=== PATIENT | male | born 1955 | race Caucasian/White ===

== ENCOUNTER 2016-07-07 16:49 | Emergency (ER) | payer BC ==
[~2016-07-07] VITALS: Ht 165.1 cm; Wt 83.9 kg
[2016-07-07 16:58] VITALS: BP 156/104; PULSE 106; RESP 20; TEMP 98.2; O2SAT 97
--- NOTE | 2016-07-07 17:02 | NUR ---
Neel cedillo in EDM - 07/07/16 at 1704 by PITO Pt placed to ER jacky 8 and to jillian. Pt report given to RUI Vilchis.
--- NOTE | 2016-07-07 17:04 | NUR ---
Pt placed to ER bed 05 and to gown. Pt report given to RUI Fuentes.
--- NOTE | 2016-07-07 17:15 | NUR ---
CASSI Watkins at bedside examining patient.
[2016-07-07] MEDS ORDERED: NACL 0.9% 1,000 ML IV SCH (17:16)
--- NOTE | 2016-07-07 17:18 | NUR ---
# 20 gauge angiocath placed to right hand . Use of asceptic technique. Opsite placed over site. Blood return noted. Blood for lab drawn from site. Flushed with 10 cc of normal saline. No evidence of infiltration noted. Patient tolerated well.
--- NOTE | 2016-07-07 17:19 | NUR ---
pt c/o LLQ pain with nausea,vomiting. had pain yesterday,went away,came back after the lunch.denies diarrhea,constipation,no blood in stool and urine.
[2016-07-07] MEDS ORDERED: MAG HYDROX/AL HYDROX/SIMETH 30 ML, BELLADONNA ALKALOIDS/PHENOBARB 10 ML, LIDOCAINE VISC... PO ONE ×3 (17:30)
[2016-07-07] MEDS ORDERED: KETOROLAC TROMETHAMINE 30 MG VIAL IVP ONE (17:30)
[2016-07-07] MEDS ORDERED: PROCHLORPERAZINE EDISYLATE 10 MG/2 ML VIAL IVP ONE (17:30)
[2016-07-07] MEDS ORDERED: PANTOPRAZOLE SODIUM 40 MG/VIAL (PROTONIX) IVP ONE (17:30)
[2016-07-07 17:31] LABS: BASOPHILS # (AUTO) 0.1 K/uL (0.0-0.2); BASOPHILS % (AUTO) 1.3 % (0.0-2.0); EOSINOPHILS # (AUTO) 0.3 K/uL (0.0-0.4); EOSINOPHILS % (AUTO) 3.5 % (0.0-4.0); HEMATOCRIT 43.8 % (36-54); HEMOGLOBIN 15.1 g/dL (14.0-18.0); LYMPHOCYTES # (AUTO) 1.3 K/uL (1.0-5.5); LYMPHOCYTES % (AUTO) 15.9 % (20.5-51.5); MEAN CORPUSCULAR HEMOGLOBIN 26 pg (27-31); MEAN CORPUSCULAR HGB CONC 35 % (32-36); MEAN CORPUSCULAR VOLUME 76 fL (79.0-98.0); MONOCYTES # (AUTO) 0.6 K/uL (0.0-1.0); MONOCYTES % (AUTO) 7.5 % (1.7-9.3); NEUTROPHILS # (AUTO) 6.1 K/uL (1.8-7.7); NEUTROPHILS % (AUTO) 71.8 % (40.0-70.0); PLATELET COUNT (AUTO) 206 K/uL (130-430); RED BLOOD CELL COUNT(AUTO) 5.75 MIL/uL (4.2-6.2); RED CELL DISTRIBUTION WIDTH 13.7 % (9.0-15.0); WHITE BLOOD COUNT (AUTO) 8.4 K/uL (4.8-10.8)
[2016-07-07 17:41] LABS: CREATININE 1.68 mg/dL (0.55-1.30); POTASSIUM 3.7 mmol/L (3.5-5.1)
[2016-07-07 17:46] LABS: ALBUMIN 4.2 g/dL (3.4-4.8); TOTAL BILIRUBIN 0.6 mg/dL (0.0-1.0); TOTAL PROTEIN, SERUM 7.6 g/dL (6.4-8.3)
[2016-07-07] MEDS ORDERED: KETOROLAC TROMETHAMINE 30 MG VIAL ONE (17:46)
--- NOTE | 2016-07-07 17:53 | NUR ---
medicated per MD's order.continue monitor.
[2016-07-07] MEDS ORDERED: DIPHENHYDRAMINE INJ 50 MG/ML VIAL ONE (17:54)
--- NOTE | 2016-07-07 17:55 | NUR ---
transported to ct scan via [facility]
[2016-07-07] MEDS ORDERED: DIPHENHYDRAMINE INJ 50 MG/ML VIAL IVP ONE (18:00)
[2016-07-07] MEDS ORDERED: MORPHINE 2 MG/ML INJ. SYRINGE IVP ONE (18:00)
--- NOTE | 2016-07-07 18:09 | NUR ---
returned back from ct scan. snoring after receiving the benadryl.no resp distress noted.
--- NOTE | 2016-07-07 19:00 | NUR ---
PT is resting in bed.awake,alert,no distress noted.
--- NOTE | 2016-07-07 19:13 | NUR ---
report given to welder 2nd shift Anatoly FABIAN
--- NOTE | 2016-07-07 19:15 | NUR ---
Pt is resting comfortably. VSS. Will continue to monitor. No other injuries or complaints mentioned/noted. No distress noted.
[2016-07-07 20:20] LABS: BILIRUBIN,URINE NEGATIVE (NEGATIVE); BLOOD, URINE 2+ (NEGATIVE); CLARITY/URINE CLEAR (CLEAR); COLOR,URINE YELLOW (YELLOW); GLUCOSE,URINE 1+ (NEGATIVE); KETONES,URINE NEGATIVE (NEGATIVE); LEUKOCYTE ESTERASE ,URINE NEGATIVE (NEGATIVE); NITRITE, URINE NEGATIVE (NEGATIVE); PH,URINE 6.5 (5.0-8.0); PROTEIN URINE NEGATIVE (NEGATIVE); UROBILINOGEN,URINE 0.2 (0.2-1.0)
[2016-07-07 20:34] LABS: BACTERIA,URINE None Seen /HPF (None Seen); MUCUS,URINE None Seen /LPF (None Seen); WBC,URINE 0-3 /HPF (0-3)
[2016-07-07 21:12] VITALS: BP 144/95; PULSE 90; RESP 16; TEMP 98.2; O2SAT 95
--- NOTE | 2016-07-07 21:12 | NUR ---
Patient given written and verbal discharge instructions and verbalizes understanding. ER MD discussed with patient the results and treatment provided. Patient in stable condition. ID arm band removed. IV catheter removed intact and dressing applied, no active bleeding. Rx of Zofran, Motrin, and [place] given. Patient educated on pain management and to follow up with PMD. Pain Scale 0/10. Opportunity for questions provided and answered.
== END 2016-07-07 21:12 | disposition home or self-care (01) ==
LOC: SED 16:49
DX: N20.0 Calculus of kidney (principal)
CPT/HCPCS: 36415; 74176; 80053; 81000; 85025; 96361; 96374; 96375; 99285; C9113; J0780; J1200; J1885; J2001; J7030

== ENCOUNTER 2017-12-15 23:23 | Emergency (ER) | payer BC ==
[~2017-12-15] VITALS: Ht 165.1 cm; Wt 78.5 kg
--- NOTE | 2017-12-15 23:30 | NUR ---
Patient to ER bed 6 to gown for evaluation. Side rails up.
[2017-12-15 23:32] VITALS: BP_SYST 133
--- NOTE | 2017-12-15 23:35 | NUR ---
Patient ambulatory to ED a/o x 4 with c/o left ankle pain since tuesday. Reports Hx of gout. Patient denies recent trauma or injury to site. Taking aspirin and advil with minimal relief. No obvious deformities noted. CMS intact. Patient able to bear partial weight.
--- NOTE | 2017-12-15 23:42 | NUR ---
CASSI Witt at bedside examining patient.
[2017-12-15] MEDS ORDERED: KETOROLAC TROMETHAMINE 30 MG VIAL IM ONE (23:45)
[2017-12-16 00:28] VITALS: BP_SYST 133
--- NOTE | 2017-12-16 00:28 | NUR ---
Patient given written and verbal discharge instructions and verbalizes understanding. ER MD discussed with patient the results and treatment provided. Patient in stable condition. ID arm band removed. Rx of Ibuprofen given. Patient educated on pain management and to follow up with PMD in 2-3 days. Pain Scale 0/10 Opportunity for questions provided and answered. Medication side effect fact sheet provided.
== END 2017-12-16 00:28 | disposition home or self-care (01) ==
LOC: SED 23:23
DX: M76.62 Achilles tendinitis, left leg (principal); E11.9 Type 2 diabetes mellitus without complications; M10.9 Gout, unspecified; I10 Essential (primary) hypertension
CPT/HCPCS: 96372; 99283; J1885